=== PATIENT | female | born 1990 | race Caucasian/White ===

== ENCOUNTER 2017-02-08 10:08 | Emergency (ER) | payer OTHER ==
[~2017-02-08] VITALS: Ht 162.5 cm; Wt 59.0 kg
[~2017-02-08 10:08] MED LIST: AMOXICILLIN500 M2 PO; AMOXICILLIN500 MG PO; ANAPROX DS550 MG PO; AUGMENTIN 875 M1 TAB PO; CIPRO250 MG PO; CLARITIN10 MG PO; CYCLOBENZAPRINE10 MG PO; FLEXERIL10 MG PO; FLEXERIL5 MG PO; IBU800 MG PO; IRON324 M1 PO; KEFLEX500 MG PO; LOMOTIL 0.025 M1 TA1 PO; MACROBID100 M1 PO; MOTRIN800 MG PO; NAPROSYN500 MG PO; NITROFURANTOIN100 M3 PO; NKHM; NKHM PO; PERCOCET 325 MG1 TA6 PO; PHENERGAN25 M1 PO; PRENATAL1 TA1 PO; PRENTAL 1 PLUS1 TAB PO; PYRIDIUM200 M1 PO; Phenergan25 MG PO; SUBOXONE 4 MG-1 EACH PO; SUBOXONE 8 MG-1 EACH SL; TRAMADOL HCL50 MG PO; ULTRAM50 MG PO; UNKNOWN MEDS; VICODIN 5/500 505 MG PO; VICODIN 500 MG-1 TAB PO; ZITHROMAX Z PA250 MG PO; ZOFRAN ODT4 MG SL; ZOFRAN4 MG PO; Zofran4 MG PO
[2017-02-08] MEDS ORDERED: PENICILLIN VK500 MG PO (10:26)
[2017-02-08] MEDS ORDERED: LIDOCAINE HCL100 M1 MM (10:26)
[2017-02-08] MEDS ORDERED: NAPROSYN500 MG PO (10:26)
[2017-02-08] MEDS ORDERED: Peridex 473 ML473 ML PO (10:26)
== END 2017-02-08 10:35 | disposition home or self-care (01) ==
LOC: ED 10:08
DX: K08.89 Other specified disorders of teeth and supporting structures (principal); G89.18 Other acute postprocedural pain; R03.0 Elevated blood-pressure reading, without diagnosis of hypertension; G43.909 Migraine, unspecified, not intractable, without status migrainosus; F17.200 Nicotine dependence, unspecified, uncomplicated; Z98.51 Tubal ligation status

== ENCOUNTER → 2017-05-05 | Outpatient (CLI) | payer OTHER ==
[~2017-05-05] MED LIST changes: +LIDOCAINE HCL100 M1 MM; +PENICILLIN VK500 MG PO; +Peridex 473 ML473 ML PO
[2017-05-06 07:07] LABS: HEPATITIS C VIRUS ANTIBODY <0.1 s/co (0.0-0.9)
== END | disposition home or self-care (01) ==
LOC: LAB 16:18
PROVIDERS: Pediatrics
DX: Z20.5 Contact with and (suspected) exposure to viral hepatitis (principal)

== ENCOUNTER → 2017-05-23 | Emergency (ER) | payer OTHER ==
[~2017-05-23] VITALS: Ht 162.5 cm; Wt 54.4 kg
== END ==
LOC: ED 09:27
DX: R51 Headache (principal); F17.200 Nicotine dependence, unspecified, uncomplicated; Z98.51 Tubal ligation status; Z53.21 Procedure and treatment not carried out due to patient leaving prior to being seen by health care provider

== ENCOUNTER 2017-07-20 17:40 | Emergency (ER) | payer OTHER ==
[~2017-07-20] VITALS: Ht 162.5 cm; Wt 54.4 kg
== END 2017-07-20 18:30 | disposition left against medical advice (07) ==
LOC: ED 17:40
DX: G43.909 Migraine, unspecified, not intractable, without status migrainosus (principal); Z53.21 Procedure and treatment not carried out due to patient leaving prior to being seen by health care provider; F17.200 Nicotine dependence, unspecified, uncomplicated

== ENCOUNTER 2017-09-10 17:52 | Emergency (ER) | payer OTHER ==
[~2017-09-10] VITALS: Ht 162.5 cm; Wt 524.4 kg
[2017-09-10] MEDS ORDERED: Fioricet 325 MG1 TAB PO (19:55)
[2017-09-10] MEDS ORDERED: ZOFRAN4 MG PO (19:55)
== END 2017-09-10 20:49 | disposition home or self-care (01) ==
LOC: ED 17:52
DX: G43.909 Migraine, unspecified, not intractable, without status migrainosus (principal); R11.2 Nausea with vomiting, unspecified; F17.200 Nicotine dependence, unspecified, uncomplicated; Z79.899 Other long term (current) drug therapy

== ENCOUNTER 2017-11-03 11:19 | Emergency (ER) | payer OTHER ==
[~2017-11-03] VITALS: Ht 162.5 cm; Wt 52.2 kg
[~2017-11-03 11:19] MED LIST changes: +Fioricet 325 MG1 TAB PO
[2017-11-03] MEDS ORDERED: CEFDINIR300 MG PO (14:54)
[2017-11-03] MEDS ORDERED: TESSALON PERLE100 M1 PO (14:54)
[2017-11-03] MEDS ORDERED: FLONASE ALLERG9.9 ML NS (14:54)
== END 2017-11-03 14:57 | disposition home or self-care (01) ==
LOC: ED 11:19
DX: J32.9 Chronic sinusitis, unspecified (principal); J40 Bronchitis, not specified as acute or chronic; F17.200 Nicotine dependence, unspecified, uncomplicated; Z79.899 Other long term (current) drug therapy

== ENCOUNTER 2018-04-04 13:36 | Emergency (ER) | payer MEDICAID ==
[~2018-04-04] VITALS: Wt 49.9 kg
[~2018-04-04 13:36] MED LIST changes: +CEFDINIR300 MG PO; +FLONASE ALLERG9.9 ML NS; +TESSALON PERLE100 M1 PO
[2018-04-04] MEDS ORDERED: AMOXICILLIN500 M2 PO ×2 (14:12→15:11)
[2018-04-04] MEDS ORDERED: NAPROSYN500 MG PO ×2 (14:12→15:11)
== END 2018-04-04 14:18 | disposition home or self-care (01) ==
LOC: ED 13:36
DX: K08.89 Other specified disorders of teeth and supporting structures (principal)

== ENCOUNTER 2018-06-22 14:06 | Emergency (ER) | payer OTHER ==
[~2018-06-22] VITALS: Ht 162.5 cm; Wt 56.7 kg
== END 2018-06-22 16:10 | disposition home or self-care (01) ==
LOC: ED 14:06
DX: G43.909 Migraine, unspecified, not intractable, without status migrainosus (principal); Z79.899 Other long term (current) drug therapy; Z98.51 Tubal ligation status

== ENCOUNTER 2019-08-15 15:54 | Inpatient (IN) | payer MEDICAID ==
[~2019-08-15] VITALS: Ht 162.5 cm; Wt 45.2 kg
[2019-08-15 15:56] VITALS: BP 99/59
[2019-08-15 16:16] LABS: BILIRUBIN NEGATIVE (NEGATIVE); BLOOD 2+ (NEGATIVE); CLARITY CLOUDY (CLEAR); COLOR YELLOW (YELLOW); GLUCOSE NEGATIVE (NEGATIVE); KETONE NEGATIVE (NEGATIVE); LEUKO ESTERASE 3+ (NEGATIVE); NITRITE POSITIVE (NEGATIVE); UROBILINOGEN 0.2 E.U./dl (0.2-1.0)
[2019-08-15 16:25] LABS: BACTERIA 2+; WBC TNTC wbc/hpf (0-5)
[2019-08-15 16:34] LABS: BASO % 0.2 % (0.0-1.0); EOS % 0.2 % (1.0-4.0); HEMATOCRIT 41.1 % (37.0-47.0); HEMOGLOBIN 13.8 g/dl (12.0-16.0); LYMPH # 1.3 10*3/uL (1.3-4.4); LYMPH % 9.8 % (27.0-41.0); MEAN CELL VOLUME 91.7 fl (81.0-99.0); MEAN CORPUSCULAR HGB 30.8 pg (27.0-31.0); MEAN CORPUSCULAR HGB CONC 33.6 g/dl (33.0-37.0); MEAN PLATELET VOLUME 9.5 fl (9.6-12.3); MONO # 0.9 10*3/uL (0.1-1.0); MONO % 6.8 % (3.0-9.0); NEUT # 11.1 10*3/uL (2.3-7.9); NEUT % 82.5 % (47.0-73.0); PLATELET COUNT AUTOMATED 404 10*3/uL (130-400); RED BLOOD COUNT 4.48 10*6/uL (4.10-5.10); RED CELL DISTRI WIDTH 12.6 % (0-14.5); WHITE BLOOD COUNT 13.5 10*3/uL (4.8-10.8)
[2019-08-15 16:50] LABS: ALBUMIN 3.9 gm/dl (3.1-4.5); ALKALINE PHOSPHATASE 99 U/L (45-117); BUN 16 mg/dl (7-24); CHLORIDE 105 mmol/L (98-107); CREATININE 0.83 mg/dL (0.55-1.02); LIPASE 45 U/L (73-393); POTASSIUM 3.3 mmol/L (3.5-5.1); SGOT/AST 13 IU/L (3-35); SGPT/ALT 13 U/L (12-78); SODIUM 139 mmol/L (136-145); TOTAL PROTEIN 7.9 gm/dL (6.4-8.2)
[2019-08-15 18:00] VITALS: BP 104/56
[2019-08-15 21:22] VITALS: BP 90/43
[2019-08-16 01:07] VITALS: BP 105/50
--- NOTE | 2019-08-16 01:07 | NUR ---
Time: 106 A 28 year old F admitted to under services of YONATHAN ROBERTS DO. Pt. arrived via bed from ER. Chief complaint: UTI S/S X 4 DAYS. BACK PAIN STARTING 08/15. TYLER BELTRAN
--- NOTE | 2019-08-16 01:37 | NUR ---
MEDICATED WITH TYLENOL AND RESTORIL PER PRN ORDER FOR COMPLAINTS OF LOWER BACK PAIN RATING AN 8 AND TO ASSIST WITH SLEEP. CALL LIGHT WITHIN REACH. WILL MONITOR
--- NOTE | 2019-08-16 03:00 | NUR ---
MEDS APPEAR EFFECTIVE. SLEEPING. REPIRATIONS EASY. VSS. CALL LIGHT WITHIN REACH
--- NOTE | 2019-08-16 06:00 | NUR ---
SLEPT SINCE ARRIVING ON FLOOR. NO ACUTE DISTRESS NOTED. RESPIRATIONS EASY. CALL LIGHT WITHIN REACH
[2019-08-16 06:49] LABS: BASO % 0.2 % (0.0-1.0); EOS % 0.2 % (1.0-4.0); HEMATOCRIT 35.2 % (37.0-47.0); HEMOGLOBIN 11.9 g/dl (12.0-16.0); LYMPH # 1.3 10*3/uL (1.3-4.4); LYMPH % 10.1 % (27.0-41.0); MEAN CORPUSCULAR HGB 30.4 pg (27.0-31.0); MEAN CORPUSCULAR HGB CONC 33.8 g/dl (33.0-37.0); MEAN PLATELET VOLUME 9.9 fl (9.6-12.3); MONO # 1.3 10*3/uL (0.1-1.0); MONO % 10.5 % (3.0-9.0); NEUT # 9.8 10*3/uL (2.3-7.9); NEUT % 78.7 % (47.0-73.0); PLATELET COUNT AUTOMATED 313 10*3/uL (130-400); RED BLOOD COUNT 3.91 10*6/uL (4.10-5.10); RED CELL DISTRI WIDTH 12.5 % (0-14.5); WHITE BLOOD COUNT 12.4 10*3/uL (4.8-10.8)
[2019-08-16 07:26] LABS: CHLORIDE 108 mmol/L (98-107); POTASSIUM 3.2 mmol/L (3.5-5.1); SODIUM 141 mmol/L (136-145)
[2019-08-16 07:37] LABS: BUN 7 mg/dl (7-24); CHOLESTEROL 96 mg/dL (<200); CREATININE 0.55 mg/dL (0.55-1.02); HDL CHOLESTEROL 49 mg/dl (40-60); LDL CHOLESTEROL 36 mg/dL (9-159); PHOSPHOROUS 3.7 mg/dL (2.5-4.9); TRIGLYCERIDES 53 mg/dl (<150); VLDL CHOLESTEROL 11 mg/dL (6-40)
[2019-08-16 08:00] VITALS: BP 102/61; BP 122/68
--- NOTE | 2019-08-16 08:00 | NUR ---
DR LUIS MANUEL MARTIN
--- NOTE | 2019-08-16 09:00 | NUR ---
[employer] in to talk to patient. Patient states lives at home with family. There are few steps in the home. Physician: none [facility]acy: [facility] Home health services: none Patient's level of ADLs: INDEPENDENT Patient has working utilities: all working DME: none Follow-up physician's appointment after d/c: will be made by hospitalist nurse director upon discharge Does patient want to access PORTAL?: no Discharge plan discussed with patient, she lives at home is independent in adls and ambulation, she states she will return to home when medically stable, she will need any new scripts sent to the [facility] pharmacy. Alexia from [facility] will visit with patient and help her fill out paperwork to help with the cost of the hospital stay. case management will follow for any other home needs. ANGIE BRADSHAW
--- NOTE | 2019-08-16 09:18 | NUR ---
MEDICATED WITH TYLENOL PO & IV ZOFRAN FOR C/O ABD PAIN INTO HER BACK - DESCRIBES SHARP 05/21
--- NOTE | 2019-08-16 10:58 | NUR ---
PATIENT AWOKE TO GIVE HER PAIN MEDICAINE REQUESTED BY DR ENRIQUE FOR C/O 05/21 PAIN IN LOWER ABDOMEN THAT GOES TO HER BACK. DESCRIBES STILL SHARP
[2019-08-16 12:00] VITALS: BP 108/50
--- NOTE | 2019-08-16 12:24 | NUR ---
PAIN MUCH BETTER AFTER MORPHINE AND WAS ABLE TO SLEEP NOW 03/21 - NORCO GIVEN PER ORDER
--- NOTE | 2019-08-16 13:00 | NUR ---
SLEEPING SINCE NORCO GIVEN.
--- NOTE | 2019-08-16 15:34 | NUR ---
SLEEPING BUT AROUSES EASILY SINCE MEDICATED
[2019-08-16 16:00] VITALS: BP 115/56; BP 151/58
[2019-08-16 20:00] VITALS: BP 112/61
--- NOTE | 2019-08-16 20:51 | NUR ---
Neurological: AAOX3: COOPERATIVE SPEECH CLEAR/SLURRED Respiratory: ROOM AIR, NORLABORED Breath sounds: CLEAR T/O Cough: NONE NOTED Cardiovascular: HRR, DENIES CP/PRESSURE, NO EDEMA, PPP Gastrointestinal: NORMOACTIVE X4 QUADS, C/O NAUSEA, LOWER ABDOMINAL PAIN RADIATING TO BACK RATING 8/10, SOFT/NONDISTENDED Genito/Urinary: DENIES DYSURIA Musculoskeketal: AMBULATORY: GAIT STEADY, SKIN INTACT PATIENT RESTING IN BED WITTH C/O LOWER ABDOMINAL PAIN RATING AN 8/10 AND NAUSEA. PRN NORCO AND ZOFRAN PROVIDED AND PATIENT TOLERATED WELL. BED IS LOW, LOCKED, AND CALL LIGHT IS WITHIN REACH. INFORMED PATIENT THAT VISITING HOURS ARE OVER AT 9PM AND SHE IS IN AGREEANCE WITH THIS. WILL MONITOR EFFECT OF MEDICATIONS. DOUGLAS MANSFIELD A
[2019-08-17] VITALS: BP 90/63
[2019-08-17 06:42] LABS: BASO % 0.5 % (0.0-1.0); EOS % 0.5 % (1.0-4.0); HEMATOCRIT 33.7 % (37.0-47.0); HEMOGLOBIN 11.4 g/dl (12.0-16.0); LYMPH # 1.1 10*3/uL (1.3-4.4); LYMPH % 12.9 % (27.0-41.0); MEAN CELL VOLUME 91.1 fl (81.0-99.0); MEAN CORPUSCULAR HGB 30.8 pg (27.0-31.0); MEAN CORPUSCULAR HGB CONC 33.8 g/dl (33.0-37.0); MEAN PLATELET VOLUME 9.8 fl (9.6-12.3); MONO # 0.8 10*3/uL (0.1-1.0); MONO % 10.2 % (3.0-9.0); NEUT # 6.2 10*3/uL (2.3-7.9); NEUT % 75.5 % (47.0-73.0); PLATELET COUNT AUTOMATED 298 10*3/uL (130-400); RED CELL DISTRI WIDTH 12.7 % (0-14.5); WHITE BLOOD COUNT 8.2 10*3/uL (4.8-10.8)
[2019-08-17 07:20] LABS: ALBUMIN 2.9 gm/dl (3.1-4.5); BUN 6 mg/dl (7-24); CHLORIDE 105 mmol/L (98-107); CREATININE 0.64 mg/dL (0.55-1.02); POTASSIUM 3.7 mmol/L (3.5-5.1); SGOT/AST 7 IU/L (3-35); SGPT/ALT 13 U/L (12-78); SODIUM 139 mmol/L (136-145); TOTAL PROTEIN 6.1 gm/dL (6.4-8.2)
[2019-08-17 07:21] LABS: ALKALINE PHOSPHATASE 72 U/L (45-117)
[2019-08-17 08:00] VITALS: BP 87/60
--- NOTE | 2019-08-17 08:49 | NUR ---
NORCO GIVEN AT THIS TIME FOR C/O PAIN TO LOWER ABD AND BACK OF 810. WILL CONT TO MONITOR. CALL LIGHT IN REACH.
--- NOTE | 2019-08-17 09:00 | NUR ---
case management visits with patient, she will return home when medically stable and denies any home needs
[2019-08-17 09:45] VITALS: BP 98/58
[2019-08-17] MEDS ORDERED: CIPRO500 MG PO (09:57)
[2019-08-17] MEDS ORDERED: HYDROCODONE-AC1 EAC1 PO (09:57)
[2019-08-17] MEDS ORDERED: PHARMASSURE FO0.4 MG PO (09:57)
--- NOTE | 2019-08-17 11:52 | NUR ---
PT COMPLAINED OF NAUSEA ZOFRAN GIVEN
--- NOTE | 2019-08-17 11:59 | NUR ---
PT DISCHARGED AT THIS TIME. IV REMOVED AND PRESSURE DRESSING APPLIED. VERBALIZED UNDERSTANDING OF DISCHARGE INSTRUCTIONS. ZOFRAN GIVEN FOR C/O NAUSEA PRIOR TO IV REMOVAL.
== END 2019-08-17 11:59 | disposition home or self-care (01) | DRG 720 ==
LOC: ED 15:54 → 4E 21:33 → EDHOLD 21:33 → 4E 22:03
PROVIDERS: Emergency Medicine; Internal Medicine; Physician Assistant; Student in an Organized Health Care Education/Training Program; ADMIT Family Medicine
DX: A41.9 Sepsis, unspecified organism (principal); N12 Tubulo-interstitial nephritis, not specified as acute or chronic; N30.01 Acute cystitis with hematuria; D47.3 Essential (hemorrhagic) thrombocythemia; G43.911 Migraine, unspecified, intractable, with status migrainosus; E87.6 Hypokalemia; R73.9 Hyperglycemia, unspecified; F17.210 Nicotine dependence, cigarettes, uncomplicated; Z71.6 Tobacco abuse counseling

== ENCOUNTER 2020-04-10 00:10 | Emergency (ER) | payer OTHER ==
[~2020-04-10] VITALS: Wt 55.8 kg
[~2020-04-10 00:10] MED LIST changes: +CIPRO500 MG PO; +HYDROCODONE-AC1 EAC1 PO; +PHARMASSURE FO0.4 MG PO
== END 2020-04-10 01:14 | disposition home or self-care (01) ==
LOC: ED 00:10
DX: G43.909 Migraine, unspecified, not intractable, without status migrainosus (principal); Z87.891 Personal history of nicotine dependence

== ENCOUNTER 2020-06-15 21:45 | Emergency (ER) | payer OTHER ==
[~2020-06-15] VITALS: Ht 162.5 cm; Wt 49.9 kg
[2020-06-15 22:55] LABS: BASO % 0.5 % (0.0-1.0); EOS # 0.1 10*3/uL (0.0-0.4); EOS % 1.3 % (1.0-4.0); LYMPH # 2.5 10*3/uL (1.3-4.4); MEAN CELL VOLUME 88.5 fl (81.0-99.0); MEAN CORPUSCULAR HGB 30.1 pg (27.0-31.0); MONO # 0.6 10*3/uL (0.1-1.0); MONO % 7.6 % (3.0-9.0); NEUT # 5.1 10*3/uL (2.3-7.9); NEUT % 60.4 % (47.0-73.0); PLATELET COUNT AUTOMATED 399 10*3/uL (130-400); RED BLOOD COUNT 4.52 10*6/uL (4.10-5.10); RED CELL DISTRI WIDTH 12.8 % (0-14.5); WHITE BLOOD COUNT 8.4 10*3/uL (4.8-10.8)
[2020-06-15 23:06] LABS: BILIRUBIN NEGATIVE; BLOOD NEGATIVE (NEGATIVE); CLARITY CLOUDY (CLEAR); COLOR BLUE (YELLOW); GLUCOSE NEGATIVE; KETONE 2+; LEUKO ESTERASE TRACE (NEGATIVE); NITRITE NEGATIVE (NEGATIVE); SPECIFIC GRAVITY 1.025 (1.001-1.030); URINE AMPHETAMINES > 1000 (1000ng/ml); URINE BARBITURATES < 200 (200ng/ml); URINE BENZODIAZEPINES < 200 (200ng/ml); URINE CANNABINOIDS (THC) > 50 (50ng/ml); URINE COCAINE > 300 (300ng/ml); URINE METHADONE < 300 (300ng/ml); URINE OPIATES < 300 (300ng/ml)
[2020-06-15 23:08] LABS: BACTERIA 2+; EPITHELIAL CELLS 31-40; MUCOUS 2+
[2020-06-15 23:09] LABS: URINE PHENCYCLIDINE < 25 (25ng/ml)
[2020-06-15 23:14] LABS: ALBUMIN 4.3 gm/dl (3.1-4.5); BUN 13 mg/dl (7-24); CHLORIDE 108 mmol/L (98-107); CREATININE 0.86 mg/dL (0.55-1.02); POTASSIUM 3.3 mmol/L (3.5-5.1); SGOT/AST 15 IU/L (3-35); SGPT/ALT 24 U/L (12-78); SODIUM 140 mmol/L (136-145); TOTAL PROTEIN 7.7 gm/dL (6.4-8.2)
[2020-06-15 23:15] LABS: ALKALINE PHOSPHATASE 75 U/L (45-117)
[2020-06-15 23:26] LABS: ACETAMINOPHEN (TYLENOL) < 5.0 ug/ml (10-30); ETHYL ALCOHOL < 3.0 mg/dl (<3)
== END 2020-06-16 01:21 | disposition home or self-care (01) ==
LOC: ED 21:45
PROVIDERS: Emergency Medicine Emergency Medical Services
DX: F41.1 Generalized anxiety disorder (principal); F43.0 Acute stress reaction; G43.909 Migraine, unspecified, not intractable, without status migrainosus; F17.200 Nicotine dependence, unspecified, uncomplicated

== ENCOUNTER 2022-05-28 14:46 | Emergency (ER) | payer OTHER ==
[~2022-05-28] VITALS: Wt 59.0 kg
== END 2022-05-28 18:26 | disposition home or self-care (01) ==
LOC: ED 14:46
DX: S09.90XA Unspecified injury of head, initial encounter (principal); G43.909 Migraine, unspecified, not intractable, without status migrainosus; Z98.51 Tubal ligation status; Z87.891 Personal history of nicotine dependence; W22.8XXA Striking against or struck by other objects, initial encounter; Y93.89 Activity, other specified; Y92.89 Other specified places as the place of occurrence of the external cause; Y99.8 Other external cause status